=== PATIENT | male | born 1995 | race Caucasian/White ===

== ENCOUNTER 2019-11-10 11:51 | Observation (INO) | payer OTHER ==
[~2019-11-10] VITALS: Ht 182.9 cm; Wt 67.0 kg
--- NOTE | 2019-11-10 11:59 | NUR ---
pt in wheelchair back to room, changed into gown, placed on monitor, sitting on [facility], denies additional needs at this time, NAD, even and unlabored respirations. Transferred to [facility] via stand by assist. friend waiting outside of room. full sentences, no SOB noted at this time.
[2019-11-10] MEDS ORDERED: SODIUM CHLORIDE FLUSH 10ML SYR IVF ONE (12:30)
[2019-11-10] MEDS ORDERED: CEFAZOLIN PMX 1GM/50ML 50 ML IV ONE (12:30)
--- NOTE | 2019-11-10 12:50 | NUR ---
Late entry: pt resting in gurney, friend at bedside, denies additional needs or discomfort. NAD, even and unlabored respirations, eyes open, conversing in full and complete sentences. WCTM.
--- NOTE | 2019-11-10 13:33 | NUR ---
pt resting in gurney, friend at bedside, denies additional needs or discomfort. NAD, even and unlabored respirations, eyes open, conversing in full and complete sentences. given warm blanket for comfort. WCTM.
[2019-11-10] MEDS ORDERED: CEFAZOLIN PMX 1GM/50ML 50 ML ONE (13:35)
[2019-11-10] MEDS ORDERED: SODIUM CHLORIDE 0.9% 1,000 ML IV ONE (14:00)
--- NOTE | 2019-11-10 14:33 | NUR ---
pt resting in gurney, given urinal, denies additional needs at this time, NAD, even and unlabored respirations, WCTM. Waiting to go to OR.
--- NOTE | 2019-11-10 15:16 | NUR ---
Pt laying in gurney on phone, denies additional needs, call light within reach, NAD, even and unlabored respirations, WCTM.
--- NOTE | 2019-11-10 16:15 | NUR ---
Late Entry: pt resting in gurni, friend at bs, NAD, even and unlabored respirations, denies additional needs, WCTM. waiting on surgery
[2019-11-10] MEDS ORDERED: MORPHINE SULFATE 4 MG/ML, 1ML ONE (16:51)
[2019-11-10] MEDS: MORPHINE SULFATE 4 MG/ML, 1ML IVPush PRN ×2 (17:30→17:32)
[2019-11-10] MEDS ORDERED: ONDANSETRON 2MG/ML, 2ML ONE ×2 (17:42→20:47)
--- NOTE | 2019-11-10 17:43 | NUR ---
Pt resting in [place], father at bs, NAD, even and unlabored respirations, denies additional needs, WCTM. waiting on surgery.
[2019-11-10] MEDS ORDERED: ONDANSETRON 2MG/ML, 2ML IVPush ONE (18:00)
--- NOTE | 2019-11-10 18:40 | NUR ---
Late ENtry: Pt resting in gurney, father and mother at bs, NAD, even and unlabored respirations, denies additional needs, WCTM. waiting on surgery.
[2019-11-10] MEDS ORDERED: MEPERIDINE/PF 25MG/ML,1ML IVPush PRN (19:00)
[2019-11-10] MEDS ORDERED: PROMETHAZINE 25 MG/ML, 1ML IV PRN (19:00)
[2019-11-10] MEDS ORDERED: HYDROmorphone 2 MG/ML, 1ML IVPush PRN ×2 (19:00→23:00)
[2019-11-10] MEDS ORDERED: OXYcodone 5 MG/5 ML ORAL.SOL UDC PO PRN (19:00)
[2019-11-10] MEDS ORDERED: hydrALAzine 20 MG/ML, 1ML IV PRN (19:00)
[2019-11-10] MEDS ORDERED: FENTANYL PF 100 MCG/2ML IV PRN (19:00)
[2019-11-10] MEDS ORDERED: LABETALOL 5MG/ML, 20ML IV PRN (19:00)
[2019-11-10] MEDS ORDERED: HALOPERIDOL 5 MG/ML IV PRN (19:00)
--- NOTE | 2019-11-10 19:11 | NUR ---
Report to OR, pt RTG
[2019-11-10] MEDS ORDERED: BUPIVACAINE/PF 0.5% ONE (19:33)
[2019-11-10] MEDS ORDERED: MIDAZOLAM 1 MG/ML, 2ML ONE (19:57)
[2019-11-10] MEDS ORDERED: FENTANYL PF 250 MCG/5ML ONE (19:57)
[2019-11-10] MEDS ORDERED: SUCCINYLCHOLINE 20 MG/ML, 10ML ONE (20:47)
[2019-11-10] MEDS ORDERED: NEOSTIGMINE 1 MG/ML, 10ML ONE (20:47)
[2019-11-10] MEDS ORDERED: GLYCOPYRROLATE 0.2MG/1ML, 5ML ONE (20:47)
[2019-11-10] MEDS ORDERED: DEXAMETHASONE 4 MG/ML, 1ML ONE (20:47)
[2019-11-10] MEDS ORDERED: PROPOFOL 10 MG/ML, 20ML ONE (20:47)
[2019-11-10] MEDS ORDERED: CEFAZOLIN 1,000 MG ONE (20:47)
[2019-11-10] MEDS ORDERED: ROCURONIUM 10MG/ML,5ML ONE (20:47)
[2019-11-10] MEDS ORDERED: MEPERIDINE/PF 25MG/ML,1ML ONE (21:07)
[2019-11-10] MEDS ORDERED: OXYcodone 5 MG/5 ML ORAL.SOL UDC ONE (21:26)
[2019-11-10] MEDS ORDERED: FENTANYL PF 100 MCG/2ML ONE (21:34)
[2019-11-10 22:00] VITALS: BP 135/79
[2019-11-10] MEDS: D5%-LACTATED RINGERS 1,000 ML IV SCH (23:00)
[2019-11-10] MEDS ORDERED: OXYcodone/APAP 5/325MG TABLET PO PRN (23:00)
[2019-11-10] MEDS ORDERED: ACETAMINOPHEN 325 MG TABLET PO PRN (23:00)
[2019-11-10] MEDS ORDERED: ONDANSETRON 2MG/ML, 2ML IVPush PRN (23:00)
[2019-11-11 00:49] VITALS: BP 133/71
[2019-11-11] MEDS: HYDROcodone/APAP 5/325 TABLET PO PRN ×3 (01:16→12:21)
[2019-11-11] MEDS: CEFAZOLIN PMX 2GM/50ML 50 ML IVPB SCH ×2 (04:30→12:22)
[2019-11-11 05:18] VITALS: BP 146/70
[2019-11-11] MEDS: D5%-LACTATED RINGERS 1,000 ML IV SCH (07:00)
[2019-11-11 07:17] VITALS: BP 130/74
[2019-11-11] MEDS ORDERED: SODIUM CHLORIDE FLUSH 10ML SYR IVF SCH (09:00)
[2019-11-11] MEDS ORDERED: HYDR-36 PO (09:09)
[2019-11-11] MEDS ORDERED: SULF1TAB24 PO (09:10)
[2019-11-11 12:44] VITALS: BP 136/81
== END 2019-11-11 13:40 | disposition home or self-care (01) ==
LOC: ED 13:34 → INTOOBSV 13:45 → EDIP 13:45 → 4NE 22:00
PROVIDERS: ADMIT Orthopaedic Surgery; ATTEND Orthopaedic Surgery
DX: S81.011A Laceration without foreign body, right knee, initial encounter (principal); W29.3XXA Contact with powered garden and outdoor hand tools and machinery, initial encounter; Y93.H2 Activity, gardening and landscaping; Y92.89 Other specified places as the place of occurrence of the external cause
CPT/HCPCS: 27385; 73564; 96365; 96366; 96375; 97162; 99284; G0378; J0330; J0690; J1100; J2175; J2250; J2270; J2405; J2704; J3010; J7030; J2710